=== PATIENT | female | born 1975 | race Caucasian/White ===

== ENCOUNTER 2022-09-26 13:16 | Emergency (ER) | payer OTHER ==
[~2022-09-26] VITALS: Ht 167.6 cm; Wt 127.9 kg
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
[2022-09-26 15:28] VITALS: BP 117/66
== END 2022-09-26 15:28 | disposition home or self-care (01) ==
LOC: ED 13:16
DX: S93.401A Sprain of unspecified ligament of right ankle, initial encounter (principal); E11.9 Type 2 diabetes mellitus without complications; X58.XXXA Exposure to other specified factors, initial encounter; Z88.5 Allergy status to narcotic agent; Z88.8 Allergy status to other drugs, medicaments and biological substances; Z91.09 Other allergy status, other than to drugs and biological substances
CPT/HCPCS: 73610; 99283-25

== ENCOUNTER 2022-09-30 17:49 | Emergency (ER) | payer OTHER ==
[~2022-09-30] VITALS: Ht 167.6 cm; Wt 127.9 kg
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
[2022-09-30] MEDS ORDERED: TRAZODONE HCL100 MG PO (18:01)
[2022-09-30] MEDS ORDERED: PRAMIPEXOLE D0.25 MG PO (18:01)
[2022-09-30] MEDS ORDERED: CLONAZEPAM1 MG PO (18:01)
[2022-09-30] MEDS ORDERED: TOPIRAMATE50 MG PO (18:02)
[2022-09-30] MEDS ORDERED: INGREZZA60 MG PO (18:02)
[2022-09-30] MEDS ORDERED: IBUPROFEN800 MG PO (18:02)
[2022-09-30] MEDS ORDERED: TRULICITY0.75 MG/0. SUB-Q (18:02)
[2022-09-30] MEDS ORDERED: HYDROCODON-ACE1 EA11 PO (19:24)
[2022-09-30 19:42] VITALS: BP 149/100
== END 2022-09-30 19:42 | disposition home or self-care (01) ==
LOC: ED 17:49
DX: S83.92XA Sprain of unspecified site of left knee, initial encounter (principal); X50.1XXA Overexertion from prolonged static or awkward postures, initial encounter; E11.9 Type 2 diabetes mellitus without complications; G20 Parkinson's disease; Z88.5 Allergy status to narcotic agent; Z88.8 Allergy status to other drugs, medicaments and biological substances; Z91.048 Other nonmedicinal substance allergy status; Z79.899 Other long term (current) drug therapy
CPT/HCPCS: 73560; A9270

== ENCOUNTER 2022-11-11 20:26 | Emergency (ER) | payer OTHER ==
[~2022-11-11] VITALS: Ht 167.6 cm; Wt 128.8 kg
[~2022-11-11 20:26] MED LIST: CLONAZEPAM1 MG PO; FLONASE ALLERG9.9 ML NAS; HYDROCODON-ACE1 EA10 PO; HYDROCODON-ACE1 EA11 PO; IBUPROFEN800 MG PO; INGREZZA60 MG PO; NICODERM CQ1 EAC1 TD; PRAMIPEXOLE D0.25 MG PO; PRAZOSIN HCL1 MG PO; TOPIRAMATE50 MG PO; TRAZODONE HCL100 MG PO; TRULICITY0.75 MG/0. SUB-Q; ZYRTEC10 MG PO
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
[2022-11-12] MEDS ORDERED: PREDNISONE20 MG PO (00:03)
[2022-11-12 00:12] VITALS: BP 125/68
== END 2022-11-12 00:15 | disposition home or self-care (01) ==
LOC: ED 20:26
DX: J20.9 Acute bronchitis, unspecified (principal); Z20.822 Contact with and (suspected) exposure to COVID-19; G43.909 Migraine, unspecified, not intractable, without status migrainosus; E11.9 Type 2 diabetes mellitus without complications; D64.9 Anemia, unspecified; Z91.048 Other nonmedicinal substance allergy status; Z88.5 Allergy status to narcotic agent; Z88.8 Allergy status to other drugs, medicaments and biological substances; Z79.899 Other long term (current) drug therapy
CPT/HCPCS: 71045; 87502; 94640; 96372; 99285-25; J1100; U0003

== ENCOUNTER 2023-07-31 16:08 | Emergency (ER) | payer OTHER ==
[~2023-07-31] VITALS: Ht 167.6 cm; Wt 127.0 kg
[~2023-07-31 16:08] MED LIST changes: -CLONAZEPAM1 MG PO; +CLONAZEPAM2 MG GT; -PRAMIPEXOLE D0.25 MG PO; +PRAMIPEXOLE DI0.5 MG PO; +PREDNISONE20 MG PO; +ZITHROMAX250 MG PO
--- OUTSIDE RECORDS SUMMARY | 2023-07-31 16:10 | XMS ---
PreManage Notification: OMID RAMAN Security Mba Intern Events 3 event(s) in the past 18 months Most recent security events: Elopement at [facility] 05/24/2023 14:39 - Patient eloped with IV in place. - Patient eloped before treatment completed. - Patient with suicidal and/or homicidal ideations eloped. Details: Patient LWBS. Elopement at [facility] 03/03/2023 18:59 - Patient eloped with IV in place. - Patient eloped before treatment completed. - Patient with suicidal and/or homicidal ideations eloped. Details: Patient LWBS Elopement at [facility] 09/19/2022 15:47 - Patient eloped with IV in place. - Patient eloped before treatment completed. - Patient with suicidal and/or homicidal ideations eloped. Details: Patient LWBS CRITERIA MET - Group Notification - [facility] CARE PROVIDERS TROY SMALL Community Health Worker 04/28/2019-Current PHONE: [phone] [facility] Current CARE SYSTEM \F\ [facility] PHONE: [phone] ELIU, Surgery Current DEVYNBHAVIN LOGAN PHONE: [phone] Care Guidelines exist for the following facilities: [facility] ( [facility] Christiano VISIT COUNT (12 MO.) 10 JUAN C Santiago TOTAL 10 NOTE: Visits indicate total known visits. ED/UCC VISIT TRACKING (12 MO.) 07/31/2023 16:09 JUAN C Phan [place] TYPE: Emergency COMPLAINT: - CHEST PAIN 05/24/2023 14:39 JUAN C Phan OR TYPE: Emergency COMPLAINT: - RT KNEE PAIN 03/03/2023 18:59 JUAN C Phan [place] TYPE: Emergency COMPLAINT: - VOMITING 12/01/2022 06:55 JUAN C Phan [place] TYPE: Emergency COMPLAINT: - COLD SYMPTOMS, COUGH, CHEST PAIN DIAGNOSES: - Allergy status to narcotic agent - Allergy status to other drugs, medicaments and biological substances - Contact with and (suspected) exposure to COVID-19 - Cough, unspecified - Other allergy status, other than to drugs and biological substances - Parkinson's disease - Type 2 diabetes mellitus without complications - Unspecified asthma, uncomplicated 11/11/2022 20:26 JUAN C Phan [place] TYPE: Emergency COMPLAINT: - SOB,COUGH DIAGNOSES: - Acute bronchitis, unspecified - Allergy status to narcotic agent - Allergy status to other drugs, medicaments and biological substances - Anemia, unspecified - Contact with and (suspected) exposure to COVID-19 - Cough, unspecified - Migraine, unspecified, not intractable, without status migrainosus - Other long term care administrator (current) drug therapy - Other nonmedicinal substance allergy status - Type 2 diabetes mellitus without complications 10/28/2022 16:20 JUAN C Phan [place] TYPE: Emergency COMPLAINT: - DIZZINESS DIAGNOSES: - Allergy status to narcotic agent - Allergy status to other drugs, medicaments and biological substances - Other fatigue - Other nonmedicinal substance allergy status - Other seasonal allergic rhinitis - Parkinson's disease - Type 2 diabetes mellitus without complications 10/07/2022 20:20 [facility] [place] [facility] COMPLAINT: - LT KNEE PAIN DIAGNOSES: - Allergy status to narcotic agent - Allergy status to other drugs, medicaments and biological substances - Other long term care administrator (current) drug therapy - Other nonmedicinal substance allergy status - Pain in left knee - Parkinson's disease - Type 2 diabetes mellitus without complications 09/30/2022 17:50 [facility] [place] [facility]: Emergency COMPLAINT: - LT KNEE INJURY DIAGNOSES: - Allergy status to narcotic agent - Allergy status to other drugs, medicaments and biological substances - Other long term care administrator (current) drug therapy - Other nonmedicinal substance allergy status - Overexertion from prolonged static or awkward postures, initial encounter - Pain in left knee - Parkinson's disease - Sprain of unspecified site of left knee, initial encounter - Type 2 diabetes mellitus without complications 09/26/2022 13:17 [facility] [place] [facility]: Emergency COMPLAINT: - R FOOT/ANKLE [...] TYPE: Emergency COMPLAINT: - BLOOD SUGAR PROBLEM INPATIENT VISIT TRACKING (12 MO.) No inpatient visits to display in this time frame [id number]
[2023-07-31 17:07] LABS: BILIRUBIN, TOTAL 0.3 ng/dL (0.2-1.0); CALCIUM 8.8 mg/dL (8.5-10.1); MAGNESIUM 2.2 mg/dL (1.8-2.4); UREA NITROGEN 10 mg/dL (7-18)
[2023-07-31 17:10] LABS: BASOPHILS 0.8 % (0-2); EOSINOPHILS 4.7 % (0-6); HEMATOCRIT 42.1 % (35.0-50.0); HEMOGLOBIN 13.7 g/dL (12.0-18.0); LYMPHOCYTES 20.4 % (24-44); MCH 29.2 (27-36); MCHC 32.6 g/dl (30-36); MCV 89.7 fl (81-99); MONOCYTES 6.8 % (0-12); NEUTROPHILS 67.3 % (39-80); PLATELET COUNT 266 K/uL (140-440); RBC 4.69 M/ul (4.3-5.7); RDW 14.8 (10.5-15.0)
[2023-07-31 17:20] LABS: INFLUENZA B NAA NEGATIVE (NEGATIVE); RESPIRATORY SYNCYTIAL VIR NAA NEGATIVE (NEGATIVE)
[2023-07-31 17:29] LABS: ALBUMIN 3.1 g/dL (3.4-5.0); ALBUMIN/GLOBULIN RATIO 0.84 (1.1-2.4); ALKALINE PHOSPHATASE 93 U/L (46-116); ALT (SGPT) 13 U/L (14-59); ANION GAP 12.7 (7-21); AST (SGOT) 12 U/L (15-37); BUN/CREATININE RATIO 9.09 (6.0-28.6); CARBON DIOXIDE 24 mmol/L (21-32); CHLORIDE 107 mmol/L (98-107); GLOMERULAR FILTRATION RATE,EST 61 mL/min (>60); POTASSIUM 3.7 mmol/L (3.5-5.1); PROTEIN, TOTAL 6.8 g/dL (6.4-8.2)
[2023-07-31] MEDS ORDERED: LAMOTRIGINE100 MG PO (17:39)
[2023-07-31] MEDS ORDERED: ZIPRASIDONE HCL40 MG PO (17:39)
[2023-07-31 19:46] VITALS: BP 132/79
--- NOTE | 2023-07-31 22:02 | EKG ---
[facility] [address] [place] [address] Signed Normal sinus rhythm Right superior axis deviation Inferior infarct (cited on or before 31-JUL-2023) Anterior infarct (cited on or before 31-JUL-2023) Abnormal ECG When compared with ECG of 31-JUL-2023 16:15, (Unconfirmed) No significant change was found Confirmed by Rosa Maher MD () on 07/31/2023 10:02:18 PM Electronically Signed By: ROSA MAHER MD 07/31/232201 PATIENT NAME: OMID RAMAN Electrocardiogram DATE OF : 71 PHYSICIAN: ROSA MAHER MD REPORT #: [id number] REPORT IS CONFIDENTIAL AND NOT TO BE RELEASED WITHOUT AUTHORIZATION
== END 2023-07-31 19:46 | disposition home or self-care (01) ==
LOC: ED 16:08
PROVIDERS: Emergency Medicine
DX: R07.89 Other chest pain (principal); G20.A1 Parkinson's disease without dyskinesia, without mention of fluctuations; E11.9 Type 2 diabetes mellitus without complications; F31.9 Bipolar disorder, unspecified; G89.29 Other chronic pain; Z11.52 Encounter for screening for COVID-19; Z91.048 Other nonmedicinal substance allergy status; Z88.5 Allergy status to narcotic agent; Z88.8 Allergy status to other drugs, medicaments and biological substances; Z79.899 Other long term (current) drug therapy
CPT/HCPCS: 36415; 71045; 80053; 83735; 84484; 85025; 87502; 93005; 93010; 99285-25; U0002

== ENCOUNTER 2024-02-18 15:10 | Emergency (ER) | payer OTHER ==
[~2024-02-18] VITALS: Ht 167.6 cm; Wt 131.9 kg
[~2024-02-18 15:10] MED LIST changes: +LAMOTRIGINE100 MG PO; +ZIPRASIDONE HCL40 MG PO
--- OUTSIDE RECORDS SUMMARY | 2024-02-18 15:16 | XMS ---
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 - Patient eloped before treatment completed. - Patient with suicidal and/or homicidal ideations eloped. Details: Patient LWBS. Elopement at [facility] 03/03/2023 18:59 - Patient eloped with IV in place. - Patient eloped before treatment completed. - Patient with suicidal and/or homicidal ideations eloped. Details: Patient LWBS Elopement at [facility] 09/19/2022 15:47 - Patient eloped with IV in place. - Patient eloped before treatment completed. - Patient with suicidal and/or homicidal ideations eloped. Details: Patient LWBS CRITERIA MET - Group Notification - [facility] - 2 Visits in 30 Days CARE PROVIDERS TROY SMALL Community Health Worker 04/28/2019-Current PHONE: [phone] [facility] Pediatrics Current CARE SYSTEM \\ [facility] PHONE: [phone] ELIU, Surgery Current KONRAD LOGAN PHONE: [phone] Care Guidelines exist for the following facilities: [facility] Christiano VISIT COUNT (12 MO.) 6 JUAN C Santiago TOTAL 6 NOTE: Visits indicate total known visits. ED/UCC VISIT TRACKING (12 MO.) 02/18/2024 15:10 JUAN C Phan OR TYPE: Emergency COMPLAINT: - FLANK PAIN 01/23/2024 14:26 JUAN C Phan OR TYPE: Emergency COMPLAINT: - LEFT KNEE PAIN 09/18/2023 12:12 JUAN C Phan OR TYPE: Emergency COMPLAINT: - L KNEE PAIN DIAGNOSES: - Allergy status to narcotic agent - Allergy status to other drugs, medicaments and biological substances - Other allergy status, other than to drugs and biological substances - Other director long term care (current) drug therapy - Pain in left knee - Parkinson's disease without dyskinesia, without mention of fluctuations - Type 2 diabetes mellitus without complications - Unilateral primary osteoarthritis, left knee 07/31/2023 16:09 JUAN C Phan [place] TYPE: Emergency COMPLAINT: - CHEST PAIN DIAGNOSES: - Allergy status to narcotic agent - Allergy status to other drugs, medicaments and biological substances - Bipolar disorder, unspecified - Encounter for screening for COVID-19 - Other chest pain - Other chronic pain - Other assisted (current) drug therapy - Other nonmedicinal substance allergy status - Parkinson's disease without dyskinesia, without mention of fluctuations - Type 2 diabetes mellitus without complications - PARKINSON'S DIS W/O DYSKINESIA, W/O MENTION OF FLU 05/24/2023 14:39 JUAN C Phan [place] TYPE: Emergency COMPLAINT: - RT KNEE PAIN 03/03/2023 18:59 JUAN C Phan [place] TYPE: Emergency COMPLAINT: - VOMITING INPATIENT VISIT TRACKING (12 MO.) No inpatient visits to display in this time frame [id number]
[2024-02-18] MEDS ORDERED: KETOROLAC TROMETHAMINE 15 MG/ML VIAL IV ONE ×2 (15:45→16:15)
[2024-02-18] MEDS ORDERED: ondansetron HCL 4 MG/2 ML VIAL IV PRN (15:45)
[2024-02-18 15:46] LABS: EOSINOPHILS 3.2 % (0-6); HEMATOCRIT 45.1 % (35.0-50.0); HEMOGLOBIN 14.7 g/dL (12.0-18.0); LYMPHOCYTES 23.6 % (24-44); MCH 29.3 (27-36); MCHC 32.6 g/dl (30-36); MCV 89.7 fl (81-99); MONOCYTES 7.1 % (0-12); NEUTROPHILS 65.1 % (39-80); PLATELET COUNT 329 K/uL (140-440); RBC 5.03 M/ul (4.3-5.7); RDW 14.9 (10.5-15.0)
[2024-02-18 15:48] LABS: BILIRUBIN, URINE NEGATIVE (negative); BLOOD/HGB, URINE NEGATIVE (Negative); KETONE, URINE NEGATIVE (Negative); LEUK ESTERASE, URINE NEGATIVE (negative); NITRITE, URINE NEGATIVE (negative); PH, URINE 6.5 (5-7)
[2024-02-18 15:55] LABS: ALBUMIN 3.6 g/dL (3.4-5.0); ALBUMIN/GLOBULIN RATIO 0.88 (1.1-2.4); ANION GAP 14.9 (7-21); BILIRUBIN, TOTAL 0.3 ng/dL (0.2-1.0); BUN/CREATININE RATIO 12.6 (6.0-28.6); CALCIUM 9.3 mg/dL (8.5-10.1); CREATININE, SERUM 1.19 mg/dL (0.55-1.02); POTASSIUM 3.9 mmol/L (3.5-5.1); PROTEIN, TOTAL 7.7 g/dL (6.4-8.2)
[2024-02-18] MEDS ORDERED: SODIUM CHLORIDE 0.9% 1,000 ML IV ONE (16:15)
[2024-02-18] MEDS ORDERED: HYDROmorphone HCL 1 MG/ML SYR IV PRN (16:30)
[2024-02-18] MEDS ORDERED: ONDANSETRON ODT8 MG PO (17:36)
[2024-02-18] MEDS ORDERED: NICODERM CQ1 EAC1 TD (17:40)
[2024-02-18] MEDS ORDERED: HYDROCODON-ACE1 EA10 PO (17:40)
[2024-02-18 17:51] VITALS: BP 113/63
--- NOTE | 2024-02-19 16:44 | EKG ---
[facility] [address] [facility] [address] [place] [address] Signed Normal sinus rhythm Left anterior fascicular block Cannot rule out Inferior infarct (cited on or before 31-JUL-2023) Cannot rule out Anterior infarct (cited on or before 31-JUL-2023) Abnormal ECG When compared with ECG of 31-JUL-2023 16:15, Nonspecific T wave abnormality no longer evident in Lateral leads Confirmed by Tarik Diaz MD ([id number]) on 02/19/2024 4:43:59 PM Electronically Signed By: TARIK DIAZ MD 02/19/24 1644 PATIENT NAME: OMID RAMAN Electrocardiogram DATE OF : 71 PHYSICIAN: TARIK DIAZ MD REPORT #: [id number] REPORT IS CONFIDENTIAL AND NOT TO BE RELEASED WITHOUT AUTHORIZATION
== END 2024-02-18 17:51 | disposition home or self-care (01) ==
LOC: ED 15:10
PROVIDERS: Emergency Medicine
DX: N20.0 Calculus of kidney (principal); E11.9 Type 2 diabetes mellitus without complications; G43.909 Migraine, unspecified, not intractable, without status migrainosus; J45.909 Unspecified asthma, uncomplicated; Z79.899 Other long term (current) drug therapy; Z79.51 Long term (current) use of inhaled steroids; Z88.5 Allergy status to narcotic agent; Z88.8 Allergy status to other drugs, medicaments and biological substances; Z91.048 Other nonmedicinal substance allergy status
CPT/HCPCS: 36415; 74176; 80053; 81003; 84484; 85025; 93005; 93010; 96374; 96375; 96376; 99284-25; J1170; J1885; J2405; J7030

== ENCOUNTER 2024-03-20 12:55 | Emergency (ER) | payer OTHER ==
[~2024-03-20] VITALS: Ht 167.6 cm; Wt 133.7 kg
[~2024-03-20 12:55] MED LIST changes: +ONDANSETRON ODT8 MG PO
--- OUTSIDE RECORDS SUMMARY | 2024-03-20 13:00 | XMS ---
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 - Patient eloped before treatment completed. - Patient with suicidal and/or homicidal ideations eloped. Details: Patient LWBS. Elopement at [facility] 03/03/2023 18:59 - Patient eloped with IV in place. - Patient eloped before treatment completed. - Patient with suicidal and/or homicidal ideations eloped. Details: Patient LWBS Elopement at [facility] 09/19/2022 15:47 - Patient eloped with IV in place. - Patient eloped before treatment completed. - Patient with suicidal and/or homicidal ideations eloped. Details: Patient LWBS CRITERIA MET - Group Notification CARE PROVIDERS TROY SMALL Community Health Worker 04/28/2019-Current PHONE: [phone] [facility] Pediatrics Current CARE SYSTEM \\ [facility] PHONE: [phone] ELIU, Surgery Chen LOAGN PHONE: [phone] Care Guidelines exist for the following facilities: [facility] Christiano VISIT COUNT (12 MO.) 6 JUAN C Santiago TOTAL 6 NOTE: Visits indicate total known visits. ED/UCC VISIT TRACKING (12 MO.) 03/20/2024 12:55 JUAN C Phan OR TYPE: Emergency COMPLAINT: - KNEE PAIN 02/18/2024 15:10 JUAN C Phan OR TYPE: Emergency COMPLAINT: - FLANK PAIN DIAGNOSES: - Allergy status to narcotic agent - Allergy status to other drugs, medicaments and biological substances - Calculus of kidney - MCFP (current) use of inhaled steroids - Migraine, unspecified, not intractable, without status migrainosus - Other assisted (current) drug therapy - Other nonmedicinal substance allergy status - Type 2 diabetes mellitus without complications - Unspecified abdominal pain - Unspecified asthma, uncomplicated 01/23/2024 14:26 JUAN C Phan [place] TYPE: Emergency COMPLAINT: - LEFT KNEE PAIN 09/18/2023 12:12 JUAN C Phan [place] TYPE: Emergency COMPLAINT: - L KNEE PAIN DIAGNOSES: - Allergy status to narcotic agent - Allergy status to other drugs, medicaments and biological substances - Other allergy status, other than to drugs and biological substances - Other assisted (current) drug therapy - Pain in left [...] pain - Other chronic pain - Other intermediate project manager (current) drug therapy - Other nonmedicinal substance allergy status - Parkinson's disease without dyskinesia, without mention of fluctuations - Type 2 diabetes mellitus without complications - PARKINSON'S DIS W/O DYSKINESIA, W/O MENTION OF FLU 05/24/2023 14:39 JUAN C Phan [place] TYPE: Emergency COMPLAINT: - RT KNEE PAIN INPATIENT VISIT TRACKING (12 MO.) No inpatient visits to display in this time frame [id number]
[2024-03-20 14:13] VITALS: BP 110/69
== END 2024-03-20 14:13 | disposition home or self-care (01) ==
LOC: ED 12:55
DX: M25.561 Pain in right knee (principal); J45.909 Unspecified asthma, uncomplicated; E11.9 Type 2 diabetes mellitus without complications; F31.9 Bipolar disorder, unspecified; G20.A1 Parkinson's disease without dyskinesia, without mention of fluctuations; Z88.5 Allergy status to narcotic agent; Z88.8 Allergy status to other drugs, medicaments and biological substances; Z91.048 Other nonmedicinal substance allergy status; Z79.899 Other long term (current) drug therapy
CPT/HCPCS: 73560; 99283

== ENCOUNTER 2024-06-12 14:58 | Emergency (ER) | payer OTHER ==
[~2024-06-12] VITALS: Ht 167.6 cm; Wt 128.8 kg
[~2024-06-12 14:58] MED LIST changes: +BUPROPION XL150 MG PO; +CYCLOBENZAPRINE10 MG PO; +INGREZZA80 MG PO; +NEXIUM40 MG PO; +PRAMIPEXOLE DIHY1 MG PO; +VITAMIN D21250 MCG PO
--- OUTSIDE RECORDS SUMMARY | 2024-06-12 15:02 | XMS ---
PreManage Notification: OMID RAMAN Security Lookback Coordinator Events 2 event(s) in the past 18 months Most recent security events: Elopement at [facility] 05/24/2023 14:39 - Patient eloped with IV in place. - Patient eloped before treatment completed. - Patient with suicidal and/or homicidal ideations eloped. Details: Patient LWBS. Elopement at [facility] 03/03/2023 18:59 - Patient eloped with IV in place. - Patient eloped before treatment completed. - Patient with suicidal and/or homicidal ideations eloped. Details: Patient LWBS CRITERIA MET - Group Notification CARE PROVIDERS TROY SMALL Community Health Worker 04/28/2019-Current PHONE: [phone] [facility] Pediatrics Current CARE SYSTEM \F\ [facility] PHONE: [phone] ELIU, [facility] KONRAD LOGAN PHONE: [phone] Care Guidelines exist for the following facilities: [facility] ( 01/05/2019 ) Christiano VISIT COUNT (12 MO.) 6 [facility] TOTAL 6 NOTE: Visits indicate total known visits. ED/UCC VISIT TRACKING (12 MO.) 06/12/2024 14:58 [facility] [place] [facility] [place] TYPE: Emergency COMPLAINT: - HEADACHE 03/20/2024 12:55 [facility]AN C [facility] [place] TYPE: Emergency COMPLAINT: - KNEE PAIN DIAGNOSES: - Allergy status to narcotic agent - Allergy status to other drugs, medicaments and biological substances - Bipolar disorder, unspecified - Other fci (current) drug therapy - Other nonmedicinal substance allergy status - Pain in right knee - Parkinson's disease without dyskinesia, without mention of fluctuations - Type 2 diabetes mellitus without complications - Unspecified asthma, uncomplicated 02/18/2024 15:10 JUAN C Phan [place] TYPE: Emergency COMPLAINT: - FLANK PAIN DIAGNOSES: - Allergy status to narcotic agent - Allergy status to other drugs, medicaments and biological substances - Calculus of kidney - intermodal dispatcher (current) use of inhaled steroids - Migraine, unspecified, not intractable, without status migrainosus - Other fci (current) drug therapy - Other nonmedicinal substance [...] to drugs and biological substances - Other fci (current) drug therapy - Pain in left [...] pain - Other chronic pain - Other fci (current) drug therapy - Other nonmedicinal substance allergy status - Parkinson's disease without dyskinesia, without mention of fluctuations - Type 2 diabetes mellitus without complications - PARKINSON'S DIS W/O DYSKINESIA, W/O MENTION OF FLU INPATIENT VISIT TRACKING (12 MO.) No inpatient visits to display in this time frame [id number]
[2024-06-12] MEDS ORDERED: PROMETHAZINE HCL 50 MG/ML SDV IM ONE (15:15)
[2024-06-12] MEDS ORDERED: diphenhydrAMINE HCL 50 MG/ML VIAL IM ONE (15:15)
[2024-06-12] MEDS ORDERED: HYDROmorphone HCL 1 MG/ML SYR IM ONE (15:15)
[2024-06-12 15:58] VITALS: BP 136/90
== END 2024-06-12 15:58 | disposition home or self-care (01) ==
LOC: ED 14:58
DX: G43.909 Migraine, unspecified, not intractable, without status migrainosus (principal); E11.9 Type 2 diabetes mellitus without complications; J45.909 Unspecified asthma, uncomplicated; G20.A1 Parkinson's disease without dyskinesia, without mention of fluctuations; F31.9 Bipolar disorder, unspecified; Z88.1 Allergy status to other antibiotic agents; Z88.5 Allergy status to narcotic agent; Z91.048 Other nonmedicinal substance allergy status; Z79.899 Other long term (current) drug therapy
CPT/HCPCS: 96372; 99283-25; J1171; J1200; J2550

== ENCOUNTER 2024-09-02 06:08 | Day surgery (SDC) | payer OTHER ==
[~2024-09-02] VITALS: Ht 165.1 cm; Wt 131.8 kg
[~2024-09-02 06:08] MED LIST changes: +ADVAIR 100-501 EACH INH; -CLONAZEPAM2 MG GT; +CLONAZEPAM2 MG PO; +CLONIDINE HCL0.1 MG PO; +LACTATED RINGER'S 1,000 ML IV SCH; +NEURONTIN300 MG PO; +VENTOLIN HFA18 GM INH
[2024-09-02] MEDS ORDERED: KETOROLAC TROMETHAMINE 30 MG/ML VIAL ONE ×2 (06:26→07:16)
[2024-09-02 06:27] VITALS: BP 139/55
[2024-09-02] MEDS ORDERED: LITHIUM CARBON300 MG PO (06:32)
[2024-09-02] MEDS ORDERED: PRAZOSIN HCL1 MG PO (06:33)
[2024-09-02] MEDS ORDERED: ZOLPIDEM TARTRAT5 MG PO (06:33)
[2024-09-02] MEDS ORDERED: IBLOOD GLUCOSE TEST STRIP 1 EA TEST VI PRN ×2 (07:00→08:15)
[2024-09-02] MEDS ORDERED: CEFAZOLIN SODIUM 3 GM/30 ML SYR IV SCH (07:00)
[2024-09-02] MEDS ORDERED: LIDOCAINE HCL 1% 5 ML SDV INJ ONE (07:00)
[2024-09-02] MEDS ORDERED: propofoL 200 MG/20 ML VIAL ONE (07:12)
[2024-09-02] MEDS ORDERED: LIDOCAINE HCL 2% 5 ML SDV ONE (07:16)
[2024-09-02] MEDS ORDERED: ACETAMINOPHEN 1,000 MG/100 ML VIAL ONE (07:16)
[2024-09-02] MEDS ORDERED: fentaNYL citrate 100 MCG/2 ML VIAL ONE (07:16)
[2024-09-02] MEDS ORDERED: DEXAMETHASONE SOD PHOS 4 MG/ML VIAL ONE ×2 (07:16→07:43)
[2024-09-02] MEDS ORDERED: ondansetron HCL 4 MG/2 ML VIAL ONE (07:16)
[2024-09-02] MEDS ORDERED: HYDROCODONE/ACETA 5/325 TAB PO PRN (07:30)
[2024-09-02] MEDS ORDERED: CELECOXIB 200 MG CAP PO SCH (08:00)
[2024-09-02] MEDS ORDERED: NALOXONE HCL 0.4 MG SYR IV PRN (08:15)
[2024-09-02] MEDS ORDERED: fentaNYL citrate 50 MCG/ML SDV IV PRN (08:15)
[2024-09-02] MEDS ORDERED: ondansetron HCL 4 MG/2 ML VIAL IV PRN (08:15)
[2024-09-02] MEDS ORDERED: CELECOXIB200 MG PO (08:22)
[2024-09-02] MEDS ORDERED: HYDROCODON-ACE1 EA10 PO (08:23)
--- NOTE | 2024-09-02 08:31 | NUR ---
09/02/24 0831 Umu Couch 0819-PT ARRIVES TO PACU VIA STRETCHER, RESTING SEMI FOWLERS, PT DROWY BUT EASILY AWAKENS TO VOICE. PT 89% ON RA PLACED ON 10L VIA MASK AND SATS IMPROVED TO 99%. PT DENIES PAIN OR NAUSEA. ICE PACK APPLIED TO RT KNEE. 0830-PT TITRATED TO 6L VIA MASK, VSS. PT DENIES PAIN OR NAUSEA, RESTING COMFORTABLY.
[2024-09-02 08:50] VITALS: BP 118/64
--- NOTE | 2024-09-02 08:52 | NUR ---
LE 0893: PT IS BACK TO DS FROM PACU. SHE IS TOLERATING WATER. CALL LIGHT WITHIN REACH. FRIEND IS AT THE BEDSIDE. SHE WOULD LIKE CHOCOLATE PUDDING. NO ADDITIONAL NEEDS AT THIS TIME. DC CRITERIA IS REVEIWED WITH PT.
[2024-09-02 09:59] VITALS: BP 124/70
--- NOTE | 2024-09-02 10:01 | NUR ---
LE 0945: PT TURNS ON HER CALL LIGHT AND STATES THAT SHE WOULD LIKE TO GET UP AND USED THE BATHROOM. SHE IS ASSISTED UP OOB. UPON STANDING SHE STATES "I CAN'T DO IT." SHE REPORTS PAIN 10/10. SHE IS GIVEN THE OPTION OF USING A BEDSIDE COMMODE OR A WALKER. SHE WOULD LIKE TO TRY THE WALKER. WITH THE WALKER SHE IS ABLE TO AMBULATE TO AND FROM THE BATHROOM WITHOUT ISSUES. LE 0955: PT IS HELPED BACK TO BED AND STATES THAT HER PAIN IS A 9/10 ONCE SHE HAS HER LEG UP OFF THE FLOOR AND ICE TO THE AREA. LE 1000: PAIN PILL GIVEN. SHE IS REQUESTING MORE WATER. SHE IS EDUCATED ON WHERE SHE IS AT FOR DC HOME.
--- NOTE | 2024-09-02 11:04 | NUR ---
LORE 1035: RN CHECKS ON PT TO SEE HOW HER PAIN MED IS WORKING. IT HAS BROUGHT HER PAIN DOWN TO A 4/10. SHE INDICATES THAT SHE WOULD LIKE TO GO HOME. SHE IS EDUCATED ON HOW TO BEST DRESS HERSELF AND TO OPEN HER CURTAIN WHEN READY. LORE 1042: PT AND FRIEND ARE GIVEN WRITTEN AND VERBAL DC INSTRUCTIONS. THEY BOTH VERBALIZE UNDERSTANDING. NO QUESTIONS AT THIS TIME. LORE 1045: PT IS TAKEN TO PERSONAL VEHICLE VIA , WHERE SHE TRANSFERS HERSELF WITHOUT ISSUES.
[2024-09-02] MEDS ORDERED: SEVOFLURANE 250 ML BTL INH ONE (15:13)
--- NOTE | 2024-09-04 15:03 | OR ---
[facility] [address] [place], [place] [address] Signed DATE OF OPERATION: 09/02/2024 SURGEON: Turner Kapadia MD PREOPERATIVE DIAGNOSIS: Medial meniscus tear, loose body, right knee. POSTOPERATIVE DIAGNOSIS: Medial meniscus tear, loose body, right knee. PROCEDURE PERFORMED: Right knee arthroscopy with partial medial meniscectomy and removal of loose body. COMPUTER AIDE: None. ANESTHESIA: General. BLOOD LOSS: 100 mL. BRIEF HISTORY: Omid is a 49-year-old female who has pain and instability in her knee. She has mild to moderate arthritis on x-ray. MRI was consistent with the above findings. Risks and benefits of operative treatment were discussed with her and she elected to proceed. DESCRIPTION OF PROCEDURE: Once consent was obtained she was taken to the operating room. After adequate anesthesia she was placed on operating room table. Left leg was flexed, abducted and externally rotated on a well-padded leg monahan. Right was placed in a leg monahan with no tourniquet. The leg was then prepped and draped in a standard sterile fashion and standard inferolateral and superolateral portals were established and the scope was introduced in the knee. ARTHROSCOPIC FINDINGS: The knee showed marked synovitis throughout. 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 ACL and PCL were intact. Medial meniscus showed a complex tear posteromedially. There were several loose bodies floating around. Loose bodies were Electronically Signed By: TURNER KAPADIA MD 09/04/24 1503 PATIENT NAME: OMID RAMAN OPERATIVE REPORT DATE OF : 71 REPORT #: [id number] PHYSICIAN: TURNER KAPADIA MD PCP: AUGUST OLSON NP REPORT IS CONFIDENTIAL AND NOT TO BE RELEASED WITHOUT AUTHORIZATION [facility] [address] [place], [place] [address] Signed removed using graspers. The meniscus was trimmed back using straight biter followed by the shaver to feather it out. Small chondral flaps were noted on the femur and these were removed. Medial compartment showed grade 3 to grade 4 chondromalacia to the femur, grade 3 disease on the tibial side. The lateral compartment showed grade 3 chondromalacia to small areas of the femur. The meniscus was intact. The knee was thoroughly flushed out and the scope was withdrawn. Portals were closed with 3-0 nylon and the knee was injected with 60 mg Toradol at the end. The wounds were then dressed with Adaptic, ABD, and Troy wrap. She tolerated the procedure well. All sponge, needle, and instrument counts were correct. Turner Kapadia MD BA/MAYDAL /[id number] Copies: ~ Electronically Signed By: TURNER KAPADIA MD 09/04/24 1503 PATIENT NAME: OMID RAMAN OPERATIVE REPORT DATE OF : 71 REPORT #: [id number] PHYSICIAN: TURNER KAPADIA MD PCP: AUGUST OLSON NP REPORT IS CONFIDENTIAL AND NOT TO BE RELEASED WITHOUT AUTHORIZATION
== END 2024-09-02 10:45 | disposition home or self-care (01) ==
LOC: DS 06:08
PROVIDERS: ATTEND Specialist
PROC: 0SBC4ZZ Excision of Right Knee Joint, Percutaneous Endoscopic Approach (ICD-10-PCS; principal; 2024-09-02 08:00)
DX: S83.231A Complex tear of medial meniscus, current injury, right knee, initial encounter (principal); M23.41 Loose body in knee, right knee; M22.41 Chondromalacia patellae, right knee; F31.9 Bipolar disorder, unspecified; E11.9 Type 2 diabetes mellitus without complications; X58.XXXA Exposure to other specified factors, initial encounter; Z88.5 Allergy status to narcotic agent
CPT/HCPCS: 01400; J0131; J0690; J1100; J1885; J2003; J2405; J2704; J3010; J7121

== ENCOUNTER 2024-11-22 11:48 | Observation (INO) | payer OTHER ==
[~2024-11-22] VITALS: Ht 165.1 cm; Wt 129.8 kg
[~2024-11-22 11:48] MED LIST changes: +CELECOXIB200 MG PO; +DICLOFENAC POTA50 MG PO; -LACTATED RINGER'S 1,000 ML IV SCH; +LIDODERM1 EACH TOP; +LITHIUM CARBON300 MG PO; +ONDANSETRON ODT4 MG PO; +ZOLPIDEM TARTRAT5 MG PO
--- OUTSIDE RECORDS SUMMARY | 2024-11-22 11:55 | XMS ---
PreManage Notification: OMID RAMAN Security Data Technician Events 1 event(s) in the past 18 months Most recent security events: Elopement at [facility] 05/24/2023 14:39 Details: Patient LWBS. CRITERIA MET - Group Notification - [facility] - 2 Visits in 30 Days CARE PROVIDERS TROY SMALL Community Health Worker 04/28/2019-Current PHONE: [phone] [facility] Pediatric[facility] Current CARE SYSTEM \F\ <UNAVAIL> PHONE: [phone] ELIU, Surgery Chen LOGAN PHONE: [phone] Care Guidelines exist for the following facilities: [facility] ( 01/05/2019 ) [place] VISIT COUNT (12 MO.) 7 JUAN C Santiago TOTAL 7 NOTE: Visits indicate total known visits. ED/UCC VISIT TRACKING (12 MO.) 11/22/2024 11:49 JUAN C Phan [place] TYPE: Emergency COMPLAINT: - SHORTNESS OF BREATH 11/17/2024 15:45 [facility] C [facility] [place] TYPE: Emergency COMPLAINT: - RT KNEE PAIN DIAGNOSES: - Allergy status to narcotic agent - Bathroom of unspecified non-institutional (private) residence as the place of occurrence of the external cause - Fall on same level, unspecified, initial encounter - retirement (current) use of antibiotics - Other terminal superintendent (current) drug therapy - Pain in right knee - Sprain of unspecified site of right knee, initial encounter - Unspecified asthma, uncomplicated 11/07/2024 16:53 [facility] [place] TYPE: Emergency COMPLAINT: - HEADACHE DIAGNOSES: - Allergy status to narcotic agent - Allergy status to other drugs, medicaments and biological substances - retirement (current) use of inhaled steroids - Migraine, unspecified, not intractable, without status migrainosus - Other senior living (current) drug therapy - Other nonmedicinal substance allergy status - Type 2 diabetes mellitus without complications - Unspecified asthma, uncomplicated 06/12/2024 14:58 [facility] [place] TYPE: Emergency COMPLAINT: - HEADACHE DIAGNOSES: - Allergy status to narcotic agent - Allergy status to other antibiotic agents - Bipolar disorder, unspecified - Headache, unspecified - Migraine, unspecified, not intractable, without status migrainosus - Other senior living (current) drug therapy - Other nonmedicinal substance allergy status - Parkinson's disease without dyskinesia, without mention of fluctuations - Type 2 diabetes mellitus without complications - Unspecified asthma, uncomplicated 03/20/2024 12:55 [facility] [place] TYPE: Emergency COMPLAINT: - KNEE PAIN DIAGNOSES: - Allergy status to narcotic agent - Allergy status to other drugs, medicaments and biological substances - Bipolar disorder, unspecified - Other senior living (current) drug therapy - Other nonmedicinal substance [...] biological substances - Calculus of kidney - long term care phlebotomist (current) use of inhaled steroids - Migraine, unspecified, not intractable, without status migrainosus - Other senior living (current) drug therapy - Other nonmedicinal substance allergy status - Type 2 diabetes mellitus without complications - Unspecified abdominal pain - Unspecified asthma, uncomplicated 01/23/2024 14:26 JU[facility] C Ph[facility] [place] TYPE: Emergency COMPLAINT: - LEFT KNEE PAIN INPATIENT VISIT TRACKING (12 MO.) No inpatient visits to display in this time frame [email or web address]
[2024-11-22] MEDS ORDERED: ALBUTEROL/IPRATROPIUM 3 ML NEB INH PRN (12:00)
[2024-11-22 12:07] LABS: BASOPHILS 0.8 % (0.1-1.2); EOSINOPHILS 2.6 % (0.7-5.8); HEMATOCRIT 48.1 % (34.1-44.9); HEMOGLOBIN 15.3 g/dL (11.2-15.7); LYMPHOCYTES 21.9 % (19.3-51.7); MCH 28.8 PG (25.6-32.2); MCHC 31.8 g/dL (32.2-35.5); MCV 90.4 fL (79.4-94.8); MONOCYTES 6.3 % (4.7-12.5); NEUTROPHILS 68.1 % (34.0-71.1); PLATELET COUNT 321 K/uL (182-369); RBC 5.32 M/uL (3.93-5.22)
[2024-11-22 12:30] LABS: ALBUMIN 3.8 g/dL (3.4-5.0); ALBUMIN/GLOBULIN RATIO 0.97 (1.1-2.4); ALKALINE PHOSPHATASE 105 U/L (46-116); ALT (SGPT) 17 U/L (14-59); ANION GAP 14.8 (7-21); AST (SGOT) 15 U/L (15-37); BILIRUBIN, TOTAL 0.6 mg/dL (0.2-1.0); BUN/CREATININE RATIO 7.25 (6.0-28.6); CALCIUM 9.8 mg/dL (8.5-10.1); CARBON DIOXIDE 25 mmol/L (21-32); CHLORIDE 105 mmol/L (98-107); CREATININE, SERUM 1.24 mg/dL (0.55-1.02); GLOMERULAR FILTRATION RATE,EST 53 mL/min (>60); MAGNESIUM 2.1 mg/dL (1.8-2.4); POTASSIUM 3.8 mmol/L (3.5-5.1); PROTEIN, TOTAL 7.7 g/dL (6.4-8.2); UREA NITROGEN 9 mg/dL (7-18)
[2024-11-22] MEDS ORDERED: LORazepam 2 MG/ML VIAL IV ONE (12:45)
[2024-11-22] MEDS ORDERED: HYDROmorphone HCL 1 MG/ML SYR IV ONE (17:00)
[2024-11-22] MEDS ORDERED: APIXABAN 5 MG TAB PO ONE (17:30)
[2024-11-22] MEDS ORDERED: IBLOOD GLUCOSE TEST STRIP 1 EA TEST XX PRN (18:45)
[2024-11-22] MEDS ORDERED: GLUCAGON,HUMAN RECOMBINANT 1 MG/ML VIAL SUB-Q PRN (18:45)
[2024-11-22] MEDS ORDERED: ACETAMINOPHEN 325 MG TAB PO PRN (18:45)
[2024-11-22] MEDS ORDERED: DEXTROSE 50% 50 ML SYR IV PRN ×2 (18:45)
[2024-11-22] MEDS ORDERED: ondansetron HCL 4 MG/2 ML VIAL IV PRN (18:45)
[2024-11-22] MEDS ORDERED: DEXTROSE 5% 1,000 ML IV PRN (18:45)
--- NOTE | 2024-11-22 18:52 | EKG ---
[facility] [address] [place] [address] Signed Poor data quality, interpretation may be adversely affected Sinus tachycardia Left axis deviation Inferior infarct , age undetermined Anterior infarct , age undetermined Abnormal ECG When compared with ECG of 17-AUG-2024 13:14, No significant change was found Confirmed by Rosa Maher MD () on 11/22/2024 6:52:44 PM Electronically Signed By: ROSA MAHER MD 11/22/241851 PATIENT NAME: OMID RAMAN Electrocardiogram DATE OF : 71 PHYSICIAN: ROSA MAHER MD REPORT #: [id number] REPORT IS CONFIDENTIAL AND NOT TO BE RELEASED WITHOUT AUTHORIZATION
[2024-11-22] MEDS ORDERED: HYDROCODONE/ACETA 5/325 TAB PO PRN (19:15)
--- NOTE | 2024-11-22 20:09 | NUR ---
pt ARRIVED FROM ED WITH ED RN PREMA, PRIMARY RN ARMAND AND ORIENTING RN OSMEL IN ROOM RECEIVING BEDSIDE REPORT. pt ON 2LNC, VS COLLECTED. pt ORIENTED TO ROOM AND POC DISCUSSED. pt'S WALLET AND KEYS IN pt ROOM LOCK BOX, CELLPHONE AT BEDSIDE. pt AWARE AND VERBALIZED UNDERSTADNING NOT TO GET OOB WITHOUT STAFF. pt UP SBA TO BSC AND HAD X1 LOOSE BM AND UNMEASURED VOID, PER CCU RN HR UP TO 124 WHILE OOB, HR NOW RETURNED TO THE 80'S-SINUS RHYTHM. MAY HUBBARD TO CONNECT pt TO TELE CPOX. pt HAD PART OF SNADICH BOX, DENIES ADDITIONAL NEEDS OR CONCERNS. DR MAHER AT RN STATION AND UPDATED ON ABOVE INFORMATION. PRIMARY RNS ALSO UPDATED. CALL LIGHT IN REACH.
[2024-11-22 20:14] VITALS: BP 144/89
[2024-11-22] MEDS ORDERED: INSULIN LISPRO 100 UNIT/ML ML SUB-Q SCH (21:00)
[2024-11-22] MEDS ORDERED: IBLOOD GLUCOSE TEST STRIP 1 EA TEST VI SCH (21:00)
[2024-11-22] MEDS ORDERED: MELATONIN 3 MG TAB PO PRN (21:00)
--- NOTE | 2024-11-22 22:43 | NUR ---
ADMISSION ASSESSMENT COMPLETE. PT REPORTS CHEST "PRESSURE" 12/22. PRN FOR PAIN ADMIN PER EMAR. PT DENIES SOB. 2L/NC IN PLACE. SpO2 96-100%. LUNGS CLEAR THROUGHOUT. CPOX IN PLACE. TELE #6. SR. HR 70'S. PT ORIENTED TO ROOM AND NURSE CALL LIGHT. PT DENIES QUESTIONS OR CONCERNS. CALL LIGHT IN REACH.
[2024-11-23] VITALS (7 sets, daily range): BP systolic 119–135; BP diastolic 78–88
--- NOTE | 2024-11-23 00:01 | NUR ---
PT RESTING IN BED WITH EYES CLOSED. RESPIRATIONS EVEN. CALL LIGHT IN REACH.
--- NOTE | 2024-11-23 01:51 | NUR ---
PT RESTING WITH EYES CLOSED. AWAKENS EASILY. UP TO BR WITH MINIMAL SBA TO VOID. GAIT STEADY. INCREASED RESPIRATIONS NOTED. PT REPORTS SOB WITH ACTIVITY. 2L/NC IN PLACE. SpO2 MID 90'S-100%. BACK TO BED. TELE #6, HR UP TO 100'S WITH AMB. BACK TO 70'S AT REST. VS AND I&O OBTAINED. ASSESSMENT COMPLETE. NO FURTHER NEEDS. CALL LIGHT IN REACH.
--- NOTE | 2024-11-23 03:44 | NUR ---
PT IN BED LYING ON RIGHT SIDE WITH EYES CLOSED. RESPIRATIONS EVEN. CALL LIGHT IN REACH.
[2024-11-23 05:39] LABS: BASOPHILS 0.8 % (0.1-1.2); EOSINOPHILS 4.2 % (0.7-5.8); HEMATOCRIT 43.2 % (34.1-44.9); HEMOGLOBIN 13.7 g/dL (11.2-15.7); LYMPHOCYTES 26.3 % (19.3-51.7); MCH 28.7 PG (25.6-32.2); MCHC 31.7 g/dL (32.2-35.5); MCV 90.6 fL (79.4-94.8); MONOCYTES 8.3 % (4.7-12.5); NEUTROPHILS 59.8 % (34.0-71.1); PLATELET COUNT 267 K/uL (182-369); RBC 4.77 M/uL (3.93-5.22)
--- NOTE | 2024-11-23 05:50 | NUR ---
PT RESTING IN BED WITH EYES CLOSED. RESPIRATIONS EVEN. CALL LIGHT IN REACH.
[2024-11-23 05:57] LABS: ALBUMIN 3.3 g/dL (3.4-5.0); ALBUMIN/GLOBULIN RATIO 0.94 (1.1-2.4); ANION GAP 15.7 (7-21); BILIRUBIN, TOTAL 0.8 mg/dL (0.2-1.0); BUN/CREATININE RATIO 8.41 (6.0-28.6); CALCIUM 9.1 mg/dL (8.5-10.1); CREATININE, SERUM 1.07 mg/dL (0.55-1.02); MAGNESIUM 2.1 mg/dL (1.8-2.4); PHOSPHORUS, INORGANIC 4.5 mg/dL (2.5-4.9); POTASSIUM 3.7 mmol/L (3.5-5.1); PROTEIN, TOTAL 6.8 g/dL (6.4-8.2)
--- NOTE | 2024-11-23 07:36 | NUR ---
Patient resting in bed, eyes closed, respirations non labored. Patient's heart NSR-66bpm per tele. SP02 97% on room air.
--- NOTE | 2024-11-23 07:41 | NUR ---
Patient resting in bed, eyes closed, respirations even and non labored. Patient's heart rate NSR/66bpm per tele. Patient is on 2L oxygen per nc, sp02 97%. Call light within patient reach.
--- NOTE | 2024-11-23 08:01 | NUR ---
UR CLINICAL REVIEW: MCG-PER MCG REVIEW MEETS OBS CRITERIA FOR PE WITH DYSPNEA ODS EOCCO OBS 11/22/24 @ 1150 ORDER MATCHES REG NO AUTH REQUIRED FOR OBS VISIT PER MODA GUIDELINES DISCHARGE TO HOME WHEN ABLE TO WEAN OXYGEN DEMAND 11/24/24
[2024-11-23] MEDS ORDERED: CLONAZEPAM1 MG PO (08:10)
--- NOTE | 2024-11-23 08:40 | NUR ---
HOURLY ROUNDING. PATIENT IS CURRENTLY SLEEPIG BLOOD SUGAR HAS BEEN CHECKED bg-94. NO REQUEST FROM PATIENT. BOARD HAS BEEN UPDATED AND CALL LIGHT HAS BEEN PLACED WITHIN REACH
--- NOTE | 2024-11-23 10:24 | NUR ---
HOURLY ROUNDING. PATIENT IS SLEEPING. PATIENT IS ON 2L OF 02. PATIENT WENT TO THE RESTROOM OUTPUT OF 400ML. OUTPUT HAS BEEN DOCUMENTED ON THR BOARD AND HAT HAS BEEN EMPTIED. WATER HAS BEEN REPLENISHED. NO REQUEST FROM PATIENT AT THIS TIME.
--- NOTE | 2024-11-23 10:43 | NUR ---
VISITED DURING SPIRITUAL CARE ROUNDS. PT APPEARED TO BE SLEEPING. DID NOT DISTURB. PROVIDED PRAYER.
[2024-11-23] MEDS ORDERED: APIXABAN 5 MG TAB PO ONE (11:30)
[2024-11-23] MEDS ORDERED: HYDROCODON-ACE1 EA10 PO (11:37)
[2024-11-23] MEDS ORDERED: ELIQUIS5 MG PO (11:39)
--- NOTE | 2024-11-23 11:55 | NUR ---
Patient reports ongoing chest discomfort, she reports unchanged since admit. Admin scheduled elequise per provider order. Patient also received on tab norco 5/325mg po at this time for 7/10 pain level. Patient updated regarding plan of care for discharge after she eats lunch. Patient reports she will call family for a ride home. Sp02 97% on room air, respirations non labored.
[2024-11-23] MEDS ORDERED: PHARMACY RENAL DOSE ADJUSTMENT 1 DOSE MISC PO SCH (12:00)
--- NOTE | 2024-11-23 12:30 | NUR ---
Spoke with Sampson. She is getting ready for dc. She denies needs. Her Spiritual Mom will transport her to home and buddhist friends will assist her. She does not have any steps into her apartment. She does not drive and does not use any DME. She denies financial or safety concerns. Pt has a fu appt with her pcp on November 30 at 1130 and fu appt with Dr. Kapadia. She denies any further needs.
--- NOTE | 2024-11-25 14:19 | NUR ---
PT CALLED THIS AFTERNOON, STATING HER INSURANCE IS DENYING COVERAGE FOR ELIQUIS, PT STATES ITS BECAUSE DOSE IS TOO HIGH. SHE IS REQUESTING TO SEE IF PROVIDER CAN PRESCRIBE SOMETHING ELSE FOR THE PE TREATMENT. DR. MAHER WAS DISCHARGING MD, DR. BETANCUR WAS CALLED AND INFORMED OF THE SITUATION, HE WAS GIVEN PATIENT INFORMATION AND WAS GOING TO FOLLOW-UP WITH YOAN IN PHARMACY ON OPTIONS. ATTEMPTED TO FOLLOW-UP WITH PHARMACY SO I COULD UPDATE PATIENT ON OUTCOME. HER APPT WITH PCP IS NOT UNTIL 11/30 PER DISCHARGE INFORMATION, SHE IS VERY ANXIOUS AND SHE STATES HER MOTHER PASSED FROM A PE.
== END 2024-11-23 12:38 | disposition home or self-care (01) ==
LOC: ED 11:48 → MS 11:50
PROVIDERS: Emergency Medicine; ADMIT Family Medicine; ATTEND Family Medicine
DX: I26.94 Multiple subsegmental thrombotic pulmonary emboli without acute cor pulmonale (principal); R07.89 Other chest pain; E11.9 Type 2 diabetes mellitus without complications; F31.9 Bipolar disorder, unspecified; G20.A1 Parkinson's disease without dyskinesia, without mention of fluctuations; G89.29 Other chronic pain; J45.909 Unspecified asthma, uncomplicated; Z79.01 Long term (current) use of anticoagulants; Z79.4 Long term (current) use of insulin; Z79.899 Other long term (current) drug therapy; Z88.8 Allergy status to other drugs, medicaments and biological substances
CPT/HCPCS: 36415; 71045; 71260; 80053; 83735; 83880; 84100; 84484; 85025; 85379; 93005; 93010; 93306; 93970; 94640; 94762; 99285-25; G0378; J1171; J2060; Q9967

== ENCOUNTER 2024-12-17 12:02 | Emergency (ER) | payer OTHER ==
[~2024-12-17] VITALS: Ht 165.1 cm; Wt 132.6 kg
[~2024-12-17 12:02] MED LIST changes: +CLONAZEPAM1 MG PO; +ELIQUIS5 MG PO
--- OUTSIDE RECORDS SUMMARY | 2024-12-17 12:09 | XMS ---
PreManage Notification: OMID RAMAN Security Orthopedic Physician Assistant Events No recent Security Events currently on file CRITERIA MET - Group Notification - [facility] - 2 Visits in 30 Days CARE PROVIDERS TROY SMALL Community Health Worker 04/28/2019-Current PHONE: [phone] [facility] Pediatrics Current CARE SYSTEM \F\ <UNAVAIL> PHONE: [phone] Mihaela NOWAK PHONE: [phone] Care Guidelines exist for the following facilities: [facility] ( 01/05/2019 ) [place] VISIT COUNT (12 MO.) 8 JUAN C Santiago TOTAL 8 NOTE: Visits indicate total known visits. ED/UCC VISIT TRACKING (12 MO.) 12/17/2024 12:03 JUAN C Phan [place] TYPE: Emergency COMPLAINT: - DIFFICULTY BREATHING 11/22/2024 11:49 JU[facility] C Phan [place] TYPE: Emergency COMPLAINT: - SHORTNESS OF BREATH 11/17/2024 15:45 JU[facility] C Phan [place] TYPE: Emergency COMPLAINT: - RT KNEE PAIN DIAGNOSES: - Allergy status to narcotic agent - Bathroom of unspecified non-institutional (private) residence as the place of occurrence of the external cause - Fall on same level, unspecified, initial encounter - terminal operations supervisor (current) use of antibiotics - Other medical terminologist (current) drug therapy - Pain in right knee - Sprain of unspecified site of right knee, initial encounter - Unspecified asthma, uncomplicated 11/07/2024 16:53 JUAN C Phan [place] TYPE: Emergency COMPLAINT: - HEADACHE DIAGNOSES: - Allergy status to narcotic agent - Allergy status to other drugs, medicaments and biological substances - intermediate (current) use of inhaled steroids - Migraine, unspecified, not intractable, without status migrainosus - Other half-way (current) drug therapy - Other nonmedicinal substance allergy status - Type 2 diabetes mellitus without complications - Unspecified asthma, uncomplicated [facility] [place] [facility] COMPLAINT: - HEADACHE DIAGNOSES: - Allergy status to narcotic agent - Allergy status to other antibiotic agents - Bipolar disorder, unspecified - Headache, unspecified - Migraine, unspecified, not intractable, without status migrainosus - Other medical terminologist (current) drug therapy - Other nonmedicinal substance allergy status - Parkinson's disease without dyskinesia, without mention of fluctuations - Type 2 diabetes mellitus without complications - Unspecified asthma, uncomplicated 03/20/2024 12:55 [facility] [place] [facility] COMPLAINT: - KNEE PAIN DIAGNOSES: - Allergy status to narcotic agent - Allergy status to other drugs, medicaments and biological substances - Bipolar disorder, unspecified - Other half-way (current) drug therapy - Other nonmedicinal substance allergy status - Pain in right knee - Parkinson's disease without dyskinesia, without mention of fluctuations - Type 2 diabetes mellitus without complications - Unspecified asthma, uncomplicated 02/18/2024 15:10 [facility] [place] [facility] COMPLAINT: - FLANK PAIN DIAGNOSES: - Allergy status to narcotic agent - Allergy status to other drugs, medicaments and biological substances - Calculus of kidney - intermediate (current) use of inhaled steroids - Migraine, unspecified, not intractable, without status migrainosus - Other medical terminologist (current) drug therapy - Other nonmedicinal substance allergy status - Type 2 diabetes mellitus without complications - Unspecified abdominal pain - Unspecified asthma, uncomplicated 01/23/2024 14:26 [facility] C Ph[facility] [place] TYPE: Emergency COMPLAINT: - LEFT KNEE PAIN INPATIENT VISIT TRACKING (12 MO.) 11/22/2024 11:50 JUAN C Phan OR TYPE: Observation COMPLAINT: - PULMONARY EMBOLISM DIAGNOSES: - Allergy status to other drugs, medicaments and biological substances - Bipolar disorder, unspecified - terminal operations supervisor (current) use of anticoagulants - terminal operations supervisor (current) use of insulin - Multiple subsegmental pulmonary emboli without acute cor pulmonale - Other chest pain - Other chronic pain - Other medical terminologist (current) drug therapy - Parkinson's disease without dyskinesia, without mention of fluctuations - Shortness of breath - Type 2 diabetes mellitus without complications - Unspecified asthma, uncomplicated [email or web address]
[2024-12-17] MEDS ORDERED: CELECOXIB200 MG PO (12:13)
[2024-12-17] MEDS ORDERED: MIRABEGRON ER25 MG PO (12:14)
[2024-12-17] MEDS ORDERED: ALBUTEROL/IPRATROPIUM 3 ML NEB INH PRN (12:15)
[2024-12-17 12:20] LABS: BASOPHILS 0.8 % (0.1-1.2); EOSINOPHILS 3.7 % (0.7-5.8); LYMPHOCYTES 21.8 % (19.3-51.7); MCH 29.0 PG (25.6-32.2); MCHC 31.2 g/dL (32.2-35.5); MCV 93.0 fL (79.4-94.8); MONOCYTES 5.2 % (4.7-12.5); NEUTROPHILS 67.9 % (34.0-71.1); RBC 4.89 M/uL (3.93-5.22)
[2024-12-17] MEDS ORDERED: MORPHINE SULFATE 4 MG/ML VIAL IV ONE (12:45)
[2024-12-17 12:48] LABS: ALT (SGPT) 15 U/L (14-59); AST (SGOT) 10 U/L (15-37); GLOMERULAR FILTRATION RATE,EST 56 mL/min (>60); PROTEIN, TOTAL 7.5 g/dL (6.4-8.2); UREA NITROGEN 8 mg/dL (7-18)
[2024-12-17] MEDS ORDERED: KETOROLAC TROMETHAMINE 15 MG/ML VIAL IV ONE (15:30)
[2024-12-17 17:01] VITALS: BP 176/98
--- NOTE | 2024-12-18 08:16 | EKG ---
[facility] [address] [facility] [place] [address] Signed Sinus tachycardia Inferior infarct (cited on or before 31-JUL-2023) Anterolateral infarct (cited on or before 31-JUL-2023) Abnormal ECG When compared with ECG of 22-NOV-2024 11:51, Nonspecific T wave abnormality no longer evident in Inferior leads Confirmed by Tarik Diaz MD ([id number]) on 12/18/2024 8:15:48 AM Electronically Signed By: TARIK DIAZ MD 12/18/24 0816 PATIENT NAME: OMID RAMAN Electrocardiogram DATE OF : 71 PHYSICIAN: TARIK DIAZ MD REPORT #: [id number] REPORT IS CONFIDENTIAL AND NOT TO BE RELEASED WITHOUT AUTHORIZATION
--- NOTE | 2024-12-18 11:53 | EKG ---
[facility] [address] [facility] [place] [address] Signed Normal sinus rhythm Left anterior fascicular block Cannot rule out Inferior infarct (cited on or before 31-JUL-2023) Possible Anterolateral infarct (cited on or before 31-JUL-2023) Abnormal ECG When compared with ECG of 17-DEC-2024 12:02, (Unconfirmed) Left anterior fascicular block is now present Questionable change in initial forces of Anterolateral leads Confirmed by Tarik Diaz MD ([id number]) on 12/18/2024 11:52:51 AM Electronically Signed By: TARIK DIAZ MD 12/18/24 1153 PATIENT NAME: OMID RAMAN Electrocardiogram DATE OF : 71 PHYSICIAN: TARIK DIAZ MD REPORT #: [id number] REPORT IS CONFIDENTIAL AND NOT TO BE RELEASED WITHOUT AUTHORIZATION
== END 2024-12-17 17:01 | disposition home or self-care (01) ==
LOC: ED 12:02
PROVIDERS: Emergency Medicine
DX: R07.9 Chest pain, unspecified (principal); E11.9 Type 2 diabetes mellitus without complications; J45.909 Unspecified asthma, uncomplicated; Z88.8 Allergy status to other drugs, medicaments and biological substances; Z79.01 Long term (current) use of anticoagulants; Z79.2 Long term (current) use of antibiotics; Z79.899 Other long term (current) drug therapy; Z90.711 Acquired absence of uterus with remaining cervical stump
CPT/HCPCS: 36415; 71045; 71260; 80053; 83735; 83880; 84484; 85025; 93005; 93010; 99285-25; J1885; J2270; Q9967

== ENCOUNTER 2025-01-31 15:51 | Emergency (ER) | payer OTHER ==
[~2025-01-31] VITALS: Ht 165.1 cm; Wt 137.0 kg
[~2025-01-31 15:51] MED LIST changes: +MIRABEGRON ER25 MG PO
--- OUTSIDE RECORDS SUMMARY | 2025-01-31 15:58 | XMS ---
PreManage Notification: OMID RAMAN Security Vault Installer Events No recent Security Events currently on file CRITERIA MET - Group Notification CARE PROVIDERS TROY SMALL Community Health Worker 04/28/2019-Current PHONE: [phone] [facility] CARE SYSTEM \F\ <UNAVAIL> PHONE: [phone] Mihaela NOWAK PHONE: [phone] Care Guidelines exist for the following facilities: [facility] [place] ( 01/05/2019 ) [place] VISIT COUNT (12 MO.) 8 JUAN C Santiago TOTAL 8 NOTE: Visits indicate total known visits. ED/UCC VISIT TRACKING (12 MO.) 01/31/2025 15:51 JU[facility] C Phan [place] TYPE: Emergency COMPLAINT: - RT LEG PAIN 12/17/2024 12:03 JU[facility] C Phan [place] TYPE: Emergency COMPLAINT: - DIFFICULTY BREATHING DIAGNOSES: - Acquired absence of uterus with remaining cervical stump - Allergy status to other drugs, medicaments and biological substances - Chest pain, unspecified - MCFP (current) use of antibiotics - MCFP (current) use of anticoagulants - Other termite control representative (current) drug therapy - Shortness of breath - Type 2 diabetes mellitus without complications - Unspecified asthma, uncomplicated 11/22/2024 11:49 [facility] C [facility] [place] TYPE: Emergency COMPLAINT: - SHORTNESS OF BREATH 11/17/2024 15:45 [facility] C [facility] [place] TYPE: Emergency COMPLAINT: - RT KNEE PAIN DIAGNOSES: - Allergy status to narcotic agent - Bathroom of unspecified non-institutional (private) residence as the place of occurrence of the external cause - Fall on same level, unspecified, initial encounter - MCFP (current) use of antibiotics - Other termite control representative (current) drug therapy - Overexertion from prolonged static or awkward postures, initial encounter - Pain in right knee - Sprain of unspecified site of right knee, initial encounter - Type 2 diabetes mellitus without complications - Unspecified asthma, uncomplicated 11/07/2024 16:53 [facility] C [facility] [place] TYPE: Emergency COMPLAINT: - HEADACHE DIAGNOSES: - Allergy status to narcotic agent - Allergy status to other drugs, medicaments and biological substances - rodent exterminator (current) use of inhaled steroids - Migraine, unspecified, not intractable, without status migrainosus - Other penitentiary (current) drug therapy - Other nonmedicinal substance allergy status - Type 2 diabetes mellitus without complications - Unspecified asthma, uncomplicated 06/12/2024 14:58 [facility] C [facility] [place] TYPE: Emergency COMPLAINT: - HEADACHE DIAGNOSES: - Allergy status to narcotic agent - Allergy status to other antibiotic agents - Bipolar disorder, unspecified - Headache, unspecified - Migraine, unspecified, not intractable, without status migrainosus - Other termite control representative (current) drug therapy - Other nonmedicinal substance [...] substances - Bipolar disorder, unspecified - Other penitentiary (current) drug therapy - Other nonmedicinal substance [...] biological substances - Calculus of kidney - rodent exterminator (current) use of inhaled steroids - Migraine, unspecified, not intractable, without status migrainosus - Other penitentiary (current) drug therapy - Other nonmedicinal substance allergy status - Type 2 diabetes mellitus without complications - Unspecified abdominal pain - Unspecified asthma, uncomplicated INPATIENT VISIT TRACKING (12 MO.) 11/22/2024 11:50 [facility] C [facility] [place] TYPE: Observation COMPLAINT: - PULMONARY EMBOLISM DIAGNOSES: - Allergy status to other drugs, medicaments and biological substances - Bipolar disorder, unspecified - MCFP (current) use of anticoagulants - rodent exterminator (current) use of insulin - Multiple subsegmental pulmonary emboli without acute cor pulmonale - Other chest pain - Other chronic pain - Other penitentiary (current) drug therapy - Parkinson's disease without dyskinesia, without mention of fluctuations - Shortness of breath - Type 2 diabetes mellitus without complications - Unspecified asthma, uncomplicated [email or web address]
[2025-01-31] MEDS ORDERED: PENICILLIN V P500 MG PO (16:36)
[2025-01-31] MEDS ORDERED: LORazepam 2 MG/ML VIAL IV ONE ×2 (16:45→17:30)
[2025-01-31 16:52] LABS: BASOPHILS 0.8 % (0.1-1.2); EOSINOPHILS 4.3 % (0.7-5.8); LYMPHOCYTES 22.1 % (19.3-51.7); MCH 28.8 PG (25.6-32.2); MCHC 31.2 g/dL (32.2-35.5); MCV 92.4 fL (79.4-94.8); MONOCYTES 7.8 % (4.7-12.5); NEUTROPHILS 64.3 % (34.0-71.1); RBC 4.48 M/uL (3.93-5.22)
[2025-01-31 17:15] LABS: ALT (SGPT) 17 U/L (14-59); AST (SGOT) 12 U/L (15-37); GLOMERULAR FILTRATION RATE,EST 60 mL/min (>60); PROTEIN, TOTAL 6.6 g/dL (6.4-8.2); UREA NITROGEN 10 mg/dL (7-18)
[2025-01-31] MEDS ORDERED: KETOROLAC TROMETHAMINE 15 MG/ML VIAL IV ONE (18:15)
[2025-01-31] MEDS ORDERED: NAPROSYN500 MG PO (19:40)
[2025-01-31] MEDS ORDERED: HYDROCODONE/ACETA 5/325 TAB PO ONE (20:00)
[2025-01-31 20:03] VITALS: BP 169/108
--- NOTE | 2025-02-01 15:17 | EKG ---
[facility] [address] [facility] [place] [address] Signed Normal sinus rhythm Left anterior fascicular block Cannot rule out Inferior infarct (cited on or before 31-JUL-2023) Anterolateral infarct (cited on or before 31-JUL-2023) Abnormal ECG When compared with ECG of 17-DEC-2024 16:34, No significant change was found Confirmed by Tarik Diaz MD ([id number]) on 02/01/2025 3:17:28 PM Electronically Signed By: TARIK DIAZ MD 02/01/25 1517 PATIENT NAME: OMID RAMAN Electrocardiogram DATE OF : 71 PHYSICIAN: TARIK DIAZ MD REPORT #: [id number] REPORT IS CONFIDENTIAL AND NOT TO BE RELEASED WITHOUT AUTHORIZATION
== END 2025-01-31 20:04 | disposition home or self-care (01) ==
LOC: ED 15:51
PROVIDERS: Emergency Medicine
DX: M79.661 Pain in right lower leg (principal); G43.909 Migraine, unspecified, not intractable, without status migrainosus; E11.9 Type 2 diabetes mellitus without complications; J45.909 Unspecified asthma, uncomplicated; Z79.51 Long term (current) use of inhaled steroids; Z79.899 Other long term (current) drug therapy; Z91.048 Other nonmedicinal substance allergy status; Z88.5 Allergy status to narcotic agent; Z88.8 Allergy status to other drugs, medicaments and biological substances
CPT/HCPCS: 36415; 71260; 80053; 84484; 85025; 93005; 93010; 93970; 96374; 96375; 99284-25; J1885; J2060; Q9967

== ENCOUNTER 2025-03-28 10:55 | Emergency (ER) | payer OTHER ==
[~2025-03-28] VITALS: Ht 165.1 cm; Wt 138.6 kg
[~2025-03-28 10:55] MED LIST changes: +NAPROSYN500 MG PO; +PENICILLIN V P500 MG PO
--- OUTSIDE RECORDS SUMMARY | 2025-03-28 11:02 | XMS ---
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 ED/UCC VISIT TRACKING (12 MO.) 03/28/2025 10:56 [facility] [place] TYPE: Emergency COMPLAINT: - DENTAL PAIN 01/31/2025 15:[address] [facility] [place] TYPE: Emergency COMPLAINT: - RT LEG PAIN DIAGNOSES: - Allergy status to narcotic agent - Allergy status to other drugs, medicaments and biological substances - care home (current) use of inhaled steroids - Migraine, unspecified, not intractable, without status migrainosus - Other ad terminal makeup operator (current) drug therapy - Other nonmedicinal substance allergy status - Pain in right leg - Pain in right lower leg - Type 2 diabetes mellitus without complications - Unspecified asthma, uncomplicated 12/17/2024 12:[address] 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 - Other residential (current) drug therapy - Shortness of breath [...] on same level, unspecified, initial encounter - care home (current) use of antibiotics - Other residential (current) drug therapy - Overexertion from prolonged [...] other drugs, medicaments and biological substances - marine oil terminal superintendent (current) use of inhaled steroids - Migraine, unspecified, not intractable, without status migrainosus - Other residential (current) drug therapy - Other nonmedicinal substance allergy status - Type 2 diabetes mellitus without complications - Unspecified asthma, uncomplicated 06/12/2024 14:58 [facility] [place] TYPE: Emergency COMPLAINT: - HEADACHE DIAGNOSES: - Allergy status to narcotic agent - Allergy status to other antibiotic agents - Bipolar disorder, unspecified - Headache, unspecified - Migraine, unspecified, not intractable, without status migrainosus - Other residential (current) drug therapy - Other nonmedicinal substance allergy status - Parkinson's disease without dyskinesia, without mention of fluctuations - Type 2 diabetes mellitus without complications - Unspecified asthma, uncomplicated INPATIENT VISIT TRACKING (12 MO.) 11/22/2024 11:50 [facility] [place] TYPE: Observation COMPLAINT: - PULMONARY EMBOLISM DIAGNOSES: - Allergy status to other drugs, medicaments and biological substances - Bipolar disorder, unspecified - care home (current) use of anticoagulants - marine oil terminal superintendent (current) use of insulin - 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
[2025-03-28] MEDS ORDERED: PENICILLIN V P500 MG PO (12:10)
[2025-03-28 12:23] VITALS: BP 164/107
[2025-03-28] MEDS ORDERED: HYDROCODONE/ACETA 5/325 TAB PO ONE (12:30)
== END 2025-03-28 12:23 | disposition home or self-care (01) ==
LOC: ED 10:55
DX: K08.89 Other specified disorders of teeth and supporting structures (principal); E11.9 Type 2 diabetes mellitus without complications; G20.A1 Parkinson's disease without dyskinesia, without mention of fluctuations; J45.909 Unspecified asthma, uncomplicated; Z91.048 Other nonmedicinal substance allergy status; Z88.5 Allergy status to narcotic agent; Z88.8 Allergy status to other drugs, medicaments and biological substances; Z79.85 Long-term (current) use of injectable non-insulin antidiabetic drugs; Z79.1 Long term (current) use of non-steroidal anti-inflammatories (NSAID); Z79.899 Other long term (current) drug therapy
CPT/HCPCS: 99282

== ENCOUNTER 2025-04-21 15:24 | Emergency (ER) | payer OTHER ==
[~2025-04-21] VITALS: Ht 165.1 cm; Wt 136.7 kg
--- OUTSIDE RECORDS SUMMARY | ~2025-04-21 | XMS | Continuity of Care Document ---
Demographics + + + | Address | [address] | | | [place] [address] | + + + | Preferred Language | Unknown | + + + | Marital Status | | + + + | Congregational Affiliation | Unknown | + + + | Race | White | + + + | Ethnic Group | Not or | + + + Author + + + | Author | [facility] | + + + | Organization | [facility] | + + + | Address | [address] | | | [place] [address] | + + + | Phone | | + + + Care Team Providers + + + + | Care Parking Lot Attendant Name | Role | Phone | + + + + Unavailable | Unavailable | + + + + Unavailable | Unavailable | + + + + Allergies and Intolerances + + + + + + | date | description | facility | reaction | severity | + + + + + + | 2025-03-28 | Pantoprazole | [facility] | Vomiting | (no severity) | | 00:00 | | [facility] | | | + + + + + + | 2025-03-28 | Pantoprazole | [facility] - | Vomiting | (no severity) | | 00:00 | | [facility] | | | + + + + + + | 2025-03-28 | Oxycodone | [facility] - | (no reaction) | Mild | | 00:00 | | [facility] | | | + + + + + + | 2025-03-28 | Oxycodone | [facility] - | (no reaction) | Mild | | 00:00 | | [facility] | | | + + + + + + | 2025-03-28 | Oxycodone | [facility] - | (no reaction) | Mild | | 00:00 | | [facility] | | | + + + + + + | 2025-03-28 | Pantoprazole | [facility] - | Vomiting | (no severity) | | 00:00 | | [facility] | | | + + + + + + | 2025-03-28 | UNK | [facility] - | Urticaria | Mild | | 00:00 | | [facility] | | | + + + + + + Encounters No information. Functional Status No information. Immunizations No information. Medications + + + + | date | description | facility | + + + + | 2025-01-31 00:00 | NAPROXEN | [facility] | | | | [facility] | + + + + | (no date) | Mirabegron | [facility] | | | | [facility] | + + + + | (no date) | TOPIRAMATE | [facility] | | | | [facility] | + + + + | (no date) | DULAGLUTIDE | [facility] | | | | [facility] | + + + + | (no date) | CLONAZEPAM | [facility] | | | | [facility] | + + + + | (no date) | IBUPROFEN | [facility] | | | | [facility] | + + + + | (no date) | LITHIUM CARBONATE | [facility] | | | | [facility] | + + + + | (no date) | LAMOTRIGINE | [facility] | | | | [facility] | + + + + | (no date) | Valbenazine Tosylate | [facility] | | | | [facility] | + + + + | (no date) | CELECOXIB | [facility] | | | | [facility] | + + + + | (no date) | PRAZOSIN HCL | [facility] | | | | [facility] | + + + + | (no date) | ZIPRASIDONE HCL | [facility] | | | | [facility] | + + + + | (no date) | CYCLOBENZAPRINE HCL | [facility] | | | | [facility] | + + + + | (no date) | PENICILLIN V POTASSIUM | [facility] | | | | [facility] | + + + + | 2025-03-28 00:00 | PENICILLIN V POTASSIUM | [facility] | | | | [facility] | + + + + | (no date) | ZOLPIDEM TARTRATE | [facility] | | | | [facility] | + + + + | 2025-03-28 00:00 | HYDROCODONE | [facility] | | | BIT/ACETAMINOPHEN | [facility] | + + + + | (no date) | PRAMIPEXOLE DI-HCL | [facility] | | | | [facility] | + + + + | (no date) | ALBUTEROL SULFATE | [facility] | | | | [facility] | + + + + | (no date) | CLONIDINE HCL | [facility] | | | | [facility] | + + + + | (no date) | FLUTICASONE/SALMETEROL | [facility] | | | | [facility] | + + + + | (no date) | BUPROPION HCL | [facility] | | | | [facility] | + + + + Problems + + + + | date | description | facility | + + + + | 2025-01-31 00:00 | Pain of lower extremity | [facility] | | | | [facility] | + + + + | 2025-03-28 00:00 | Toothache | [facility] | | | | [facility] | + + + + Procedures No information. Results/Labs +--------+--------+ +---------+--------+---------+ | test | date | facility | value | unit | notes | +--------+--------+ +---------+--------+---------+ + + | Result panel 1 | + + + + + +------+ + + | Iron | 2025-03-24 | | 49 | (missing) | (missing) | | [place] | 09:49:07 | [facility] | | | | + + + +------+ + + + + | Result panel 2 | + + + + + +-------+ + + | TIBC | 2025-03-24 | | 377 | (missing) | (missing) | | Queta | 09:49:07 | [facility] | | | | [facility] | | | | + + + +-------+ + + + + | Result panel 3 | + + +--------+ + +------+ + + | Both | 2025-03-24 | | 13 | (missing) | (missing) | | | 09:49:07 | [facility] | | | | +--------+ + +------+ + + Social History + + + + | date | description | facility | + + + + | (no date) | Unknown if ever smoked | [facility] | | [facility] | + + + + Vital Signs + + + +---------+ | date | measurement | value | units | + + + +---------+ | 2025-03-28 00:00 | BMI | 50.8 | kg/m2 | + + + +---------+ | 2025-03-28 00:00 | BP_diastolic | 107 | mmHg | + + + +---------+ | 2025-03-28 00:00 | BP_systolic | 164 | mmHg | + + + +---------+ | 2025-03-28 00:00 | heart_rate | 89 | /min | + + + +---------+ | 2025-03-28 00:00 | height_metric | 165.1 | cm | + + + +---------+ | 2025-03-28 00:00 | height_standard | 65 | in | + + + +---------+ | 2025-03-28 00:00 | o2_saturation | 94 | % | + + + +---------+ | 2025-03-28 00:00 | respiration_rate | 16 | /min | + + + +---------+ | 2025-03-28 00:00 | | 97.1 | F | | | temperature_standar | | | | | d | | | + + + +---------+ | 2025-03-28 00:00 | weight_metric | 138.601 | kg | + + + +---------+ | 2025-03-28 00:00 | weight_standard | 305.562 | lb | + + + +---------+"
--- OUTSIDE RECORDS SUMMARY | 2025-04-21 15:31 | XMS ---
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 ED/UCC VISIT TRACKING (12 MO.) 04/21/2025 15:25 [facility] [place] TYPE: Emergency COMPLAINT: - SOB 03/28/2025 10:56 [facility] [place] TYPE: Emergency COMPLAINT: - DENTAL PAIN DIAGNOSES: - Allergy status to narcotic agent - Allergy status to other drugs, medicaments and biological substances - snf (current) use of non-steroidal anti-inflammatories (NSAID) - Long-term (current) use of injectable non-insulin antidiabetic drugs - Other superintendent marine oil terminal (current) drug therapy - Other nonmedicinal substance allergy status - Other specified disorders of teeth and supporting structures - Parkinson's disease without dyskinesia, without mention of fluctuations - Type 2 diabetes mellitus without complications - Unspecified asthma, uncomplicated 01/31/2025 15:51 [facility] [place] TYPE: Emergency COMPLAINT: - RT LEG PAIN DIAGNOSES: - Allergy status to narcotic agent - Allergy status to other drugs, medicaments and biological substances - snf (current) use of inhaled steroids - Migraine, unspecified, not intractable, without status migrainosus - Other skilled nursing (current) drug therapy - Other nonmedicinal substance allergy status - Pain in right leg - Pain in right lower leg - Type 2 diabetes mellitus without complications - Unspecified asthma, uncomplicated 12/17/2024 12:03 [facility] [place] TYPE: Emergency COMPLAINT: - DIFFICULTY BREATHING DIAGNOSES: - Acquired absence of uterus with remaining cervical stump - Allergy status to other drugs, medicaments and biological substances - Chest pain, unspecified - snf (current) use of antibiotics - superintendent marine oil terminal (current) use of anticoagulants - Other superintendent marine oil terminal (current) drug therapy - Shortness of breath [...] on same level, unspecified, initial encounter - snf (current) use of antibiotics - Other superintendent marine oil terminal (current) drug therapy - Overexertion from prolonged [...] other drugs, medicaments and biological substances - superintendent marine oil terminal (current) use of inhaled steroids - Migraine, unspecified, not intractable, without status migrainosus - Other superintendent marine oil terminal (current) drug therapy - Other nonmedicinal substance allergy status - Type 2 diabetes mellitus without complications - Unspecified asthma, uncomplicated 06/12/2024 14:58 [facility] [place] TYPE: Emergency COMPLAINT: - HEADACHE DIAGNOSES: - Allergy status to narcotic agent - Allergy status to other antibiotic agents - Bipolar disorder, unspecified - Headache, unspecified - Migraine, unspecified, not intractable, without status migrainosus - Other skilled nursing (current) drug therapy - Other nonmedicinal substance allergy status - Parkinson's disease without dyskinesia, without mention of fluctuations - Type 2 diabetes mellitus without complications - Unspecified asthma, uncomplicated INPATIENT VISIT TRACKING (12 MO.) 11/22/2024 11:50 [facility] [place] TYPE: Observation COMPLAINT: - PULMONARY EMBOLISM DIAGNOSES: - Allergy status to other drugs, medicaments and biological substances - Bipolar disorder, unspecified - superintendent marine oil terminal (current) use of anticoagulants - superintendent marine oil terminal (current) use of insulin - Multiple subsegmental 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
[2025-04-21] MEDS ORDERED: LORazepam 2 MG/ML VIAL IV ONE ×2 (16:00→17:15)
[2025-04-21 16:50] LABS: BASOPHILS 1.1 % (0.1-1.2); EOSINOPHILS 5.9 % (0.7-5.8); LYMPHOCYTES 27.3 % (19.3-51.7); MCH 27.9 PG (25.6-32.2); MCHC 32.3 g/dL (32.2-35.5); MCV 86.4 fL (79.4-94.8); MONOCYTES 7.2 % (4.7-12.5); NEUTROPHILS 58.0 % (34.0-71.1); RBC 5.06 M/uL (3.93-5.22)
[2025-04-21 17:06] LABS: ALT (SGPT) 12.0 U/L (14-59); AST (SGOT) 12.0 U/L (15-37); GLOMERULAR FILTRATION RATE,EST 74.0 mL/min (>60); PROTEIN, TOTAL 7.1 g/dL (6.4-8.2); UREA NITROGEN 11.0 mg/dL (7-18)
[2025-04-21] MEDS ORDERED: HYDROXYZINE HCL25 MG PO (17:51)
[2025-04-21 18:12] VITALS: BP 132/90
== END 2025-04-21 18:10 | disposition home or self-care (01) ==
LOC: ED 15:24
PROVIDERS: Emergency Medicine
DX: F41.9 Anxiety disorder, unspecified (principal); E11.9 Type 2 diabetes mellitus without complications; Z88.8 Allergy status to other drugs, medicaments and biological substances; Z79.899 Other long term (current) drug therapy
CPT/HCPCS: 36415; 80053; 85025; 85379; 96374; 96376; 99284-25; J2060

== ENCOUNTER 2025-05-22 13:40 | Emergency (ER) | payer OTHER ==
[~2025-05-22] VITALS: Ht 165.1 cm; Wt 136.8 kg
--- OUTSIDE RECORDS SUMMARY | ~2025-05-22 | XMS | Continuity of Care Document ---
Demographics + + + | Address | [address] | | | [place] [address] | + + + | Preferred Language | Unknown | + + + | Marital Status | | + + + | Buddhism Affiliation | Unknown | + + + | Race | White | + + + | Ethnic Group | Not or | + + + Author + + + | Author | [place] | + + + | Organization | [place] | + + + | Address | [address] | | | [place] [address] | + + + | Phone | | + + + Care Team Providers + + + + | Care Computer Forwarding System Markup Clerk Name | Role | Phone | + [...] + | (no date) | Mirabegron | [facility] | | | | [facility] | + + + + | (no date) | TOPIRAMATE | [facility] | | | | [facility] | + + + + | (no date) | DULAGLUTIDE | [facility] | | | | [facility] | + + + + | (no date) | CLONAZEPAM | [facility] | | | | [facility] | + + + + | (no date) | IBUPROFEN | [facility] | | | | [facility] | + + + + | (no date) | LITHIUM CARBONATE | [facility] | | | | [facility] | + + + + | (no date) | LAMOTRIGINE | [facility] | | | | [facility] | + + + + | (no date) | Valbenazine Tosylate | [facility] | | | | [facility] | + + + + | (no date) | CELECOXIB | [facility] | | | | [facility] | + + + + | (no date) | PRAZOSIN HCL | [facility] [place] | | | | [facility] | + + + + | (no date) | ZIPRASIDONE HCL | [facility] | | | | [facility] | + + + + | (no date) | CYCLOBENZAPRINE HCL | [facility] | | | | [facility] | + + + + | (no date) | PENICILLIN V POTASSIUM | [facility] [place] | | | | [facility] | + + + + | 2025-03-28 00:00 | PENICILLIN V POTASSIUM | [facility] | | | | [facility] | + + + + | (no date) | ZOLPIDEM TARTRATE | [facility] | | | | [facility] | + + + + | 2025-03-28 00:00 | HYDROCODONE | [facility] | | | BIT/ACETAMINOPHEN | [facility] | + + + + | (no date) | PRAMIPEXOLE DI-HCL | [facility] | | | | [facility] | + + + + | (no date) | ALBUTEROL SULFATE | [facility] | | | | [facility] | + + + + | (no date) | CLONIDINE HCL | [facility] | | | | [facility] | + + + + | (no date) | FLUTICASONE/SALMETEROL | [facility] | | | | [facility] | + + + + | (no date) | BUPROPION HCL | [facility] | | | | [facility] | + + + + Problems + + + + | date | description | facility | + + + + | 2025-03-28 00:00 | Toothache | [facility] | | | | [facility] | + + + + Procedures No information. Results/Labs +--------+--------+ +---------+--------+---------+ | test | date | facility | value | unit | notes | +--------+--------+ +---------+--------+---------+ + + | Result panel 1 | + + + + + +------+ + + | Iron | 2025-03-24 | | 49 | (missing) | (missing) | | [facility] | 09:49:07 | [facility] | | | [facility] | | | [facility] | | | | + + + +------+ + + + + | Result panel 2 | + + + + + +-------+ + + | TIBC | 2025-03-24 | | 377 | (missing) | (missing) | | [facility] [...] | (missing) | | | 09:49:07 | [facility] | | | [...] date) | Unknown if ever smoked | [facility] | | | | [facility] | + + + + Vital [...]
[~2025-05-22 13:40] MED LIST changes: +HYDROXYZINE HCL25 MG PO
--- OUTSIDE RECORDS SUMMARY | 2025-05-22 13:47 | XMS ---
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 Pediatrics Current CARE SYSTEM \F\ <UNAVAIL> PHONE: [phone] Mihaela NOWAK PHONE: [phone] Care Guidelines exist for the following facilities: [facility] ( 01/05/2019 ) Christiano VISIT COUNT (12 MO.) 9 JUAN C Santiago TOTAL 9 NOTE: Visits indicate total known visits. ED/UCC VISIT TRACKING (12 MO.) 05/22/2025 13:41 [facility] [place] TYPE: Emergency COMPLAINT: - MIGRANE 04/21/2025 15:25 [facility] [place] TYPE: Emergency COMPLAINT: - SOB DIAGNOSES: - Allergy status to other drugs, medicaments and biological substances - Anxiety disorder, unspecified - Other retirement (current) drug therapy - Shortness of breath - Type 2 diabetes mellitus without complications 03/28/2025 10:56 [facility] [place] TYPE: Emergency COMPLAINT: - DENTAL PAIN DIAGNOSES: - Allergy status to narcotic agent - Allergy status to other drugs, medicaments and biological substances - almond huller (current) use of non-steroidal anti-inflammatories (NSAID) - Long-term (current) use of injectable non-insulin antidiabetic drugs - Other retirement (current) drug therapy - Other nonmedicinal substance [...] other drugs, medicaments and biological substances - almond huller (current) use of inhaled steroids - Migraine, unspecified, not intractable, without status migrainosus - Other retirement (current) drug therapy - Other nonmedicinal substance [...] biological substances - Chest pain, unspecified - intermediate (current) use of antibiotics - intermediate (current) use of anticoagulants - Other management analyst (current) drug therapy - Shortness of breath [...] on same level, unspecified, initial encounter - almond huller (current) use of antibiotics - Other management analyst (current) drug therapy - Overexertion from prolonged [...] other drugs, medicaments and biological substances - almond huller (current) use of inhaled steroids - Migraine, unspecified, not intractable, without status migrainosus - Other management analyst (current) drug therapy - Other nonmedicinal substance allergy status - Type 2 diabetes mellitus without complications - Unspecified asthma, uncomplicated 06/12/2024 14:58 [facility] [place] TYPE: Emergency COMPLAINT: - HEADACHE DIAGNOSES: - Allergy status to narcotic agent - Allergy status to other antibiotic agents - Bipolar disorder, unspecified - Headache, unspecified - Migraine, unspecified, not intractable, without status migrainosus - Other retirement (current) drug therapy - Other nonmedicinal substance allergy status - Parkinson's disease without dyskinesia, without mention of fluctuations - Type 2 diabetes mellitus without complications - Unspecified asthma, uncomplicated INPATIENT VISIT TRACKING (12 MO.) 11/22/2024 11:[address] 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
[2025-05-22] MEDS ORDERED: OMEPRAZOLE20 M1 PO (14:36)
[2025-05-22] MEDS ORDERED: METHOCARBAMOL500 MG (14:37)
[2025-05-22] MEDS ORDERED: SODIUM CHLORIDE 0.9% 1,000 ML IV PRN (15:00)
[2025-05-22] MEDS ORDERED: PROCHLORPERAZINE EDISYLATE 10 MG/2 ML VIAL IV ONE (15:00)
[2025-05-22] MEDS ORDERED: HYDROmorphone HCL 1 MG/ML SYR IV ONE (15:45)
[2025-05-22 17:35] VITALS: BP 136/77
== END 2025-05-22 17:35 | disposition home or self-care (01) ==
LOC: ED 13:40
DX: R51.9 Headache, unspecified (principal); E11.9 Type 2 diabetes mellitus without complications; J45.909 Unspecified asthma, uncomplicated; Z79.899 Other long term (current) drug therapy; Z79.51 Long term (current) use of inhaled steroids; Z91.048 Other nonmedicinal substance allergy status; Z88.5 Allergy status to narcotic agent; Z88.8 Allergy status to other drugs, medicaments and biological substances
CPT/HCPCS: 73560; 96374; 96375; 99284-25; J0780; J1171; J1200; J7030